=== PATIENT | female | born 1990 ===

== ENCOUNTER 2021-08-09 06:56 | Emergency (ER) | payer OTHER ==
[2021-08-09] MEDS ORDERED: ACETAMINOPHEN 325 MG TAB PO ONE (09:29)
[2021-08-09] MEDS ORDERED: SODIUM CHLORIDE 0.9% 1000 ML 1,000 ML IV ONE (09:29)
[2021-08-09] MEDS ORDERED: ONDANSETRON 4 MG/2 ML INJ IV ONE (09:29)
--- NOTE | 2021-08-09 09:30 | Emergency Department Report ---
ED General Adult HPI - General Chief complaint: Upper Respiratory Infection Stated complaint: SICK Time Seen by Provider: 08/09/21 09:06 Source: patient Mode of arrival: Ambulatory Limitations: No Limitations - History of Present Illness Initial comments: 31-year-old female presents to the ER today with flulike symptoms. Patient states that symptoms started 5 days ago. She states that she has been having productive cough intermittently, and she has noticed that she has been having some diffuse anterior chest pressure and tightness and she states that it is more noticeable when she takes a deep breath. She states that she has had diarrhea intermittently, nausea and has had decreased appetite. She reports postnasal drainage but no nasal congestion or rhinorrhea. She states that she has diffuse back aches. She denies any associate abdominal pain, UTI symptoms or any abnormal vaginal symptoms. Last menstrual cycle was July 23. 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 She has not taken a COVID-19 test since symptoms started. She also has not taken a Covid vaccine. She denies any significant past medical history. She states she does not smoke. She denies any alcohol abuse. MD Complaint: not feeling well -: days(s) (5) - Related Data Previous Rx's Medication Instructions Recorded Last Taken Type Albuterol Mdi (or & Nicu Only) 2 puff IH QID PRN #8.5 gram 08/09/21 Unknown Rx [ProAir HFA Inhaler] Ondansetron [Zofran Odt] 4 mg PO Q8HR PRN #15 tab.rapdis 08/09/21 Unknown Rx cephALEXin [Keflex] 500 mg PO Q8HR #21 capsule 08/09/21 Unknown Rx Allergies Allergy/AdvReac Type Severity Reaction Status Date / Time No Known Allergies Allergy Verified 08/09/21 07:53 ED Review of Systems ROS: Stated complaint: SICK Other details as noted in HPI Constitutional: denies: chills, fever Eyes: denies: eye pain, eye discharge, vision change ENT: denies: ear pain, throat pain Respiratory: cough. denies: shortness of breath, SOB with exertion, SOB at rest, wheezing Cardiovascular: chest pain (chest pressure/tightness with deep breathes). denies: palpitations, dyspnea on exertion, edema, syncope, paroxysmal nocturnal dyspnea Gastrointestinal: nausea, diarrhea. denies: abdominal pain, vomiting, constipation, hematemesis, melena, hematochezia Genitourinary: denies: urgency, dysuria, frequency, hematuria, discharge, abnormal menses, dyspareunia Skin: denies: rash, lesions, change in color, change in hair/nails Neurological: denies: headache, weakness, numbness, paresthesias, confusion, abnormal gait, vertigo Psychiatric: denies: anxiety, depression, auditory hallucinations, visual hallucinations, homicidal thoughts, suicidal thoughts Hematological/Lymphatic: denies: easy bleeding, easy bruising, swollen glands ED Past Medical Hx - Past Medical History Previous Medical History?: No - Surgical History Past Surgical History?: No - Medications Home Medications: Home Medications Medication Instructions Recorded Confirmed Last Taken Type Albuterol Mdi (or & Nicu Only) 2 puff IH QID PRN #8.5 gram 08/09/21 Unknown Rx [ProAir HFA Inhaler] Ondansetron [Zofran Odt] 4 mg PO Q8HR PRN #15 tab.rapdis 08/09/21 Unknown Rx cephALEXin [Keflex] 500 mg PO Q8HR #21 capsule 08/09/21 Unknown Rx ED Physical Exam - General Limitations: No Limitations General appearance: alert, in no apparent distress - Head Head exam: Present: atraumatic, normocephalic, normal inspection - Eye Eye exam: Present: normal appearance, PERRL, EOMI Pupils: Present: normal accommodation - ENT ENT exam: Present: normal orophraynx, mucous membranes moist - Neck Neck exam: Present: normal inspection, full ROM. Absent: meningismus - Respiratory Respiratory exam: Present: normal lung sounds bilaterally. Absent: respiratory distress, wheezes, rales, rhonchi - Cardiovascular Cardiovascular Exam: Present: regular rate, normal rhythm, normal heart sounds - GI/Abdominal GI/Abdominal exam: Present: soft. Absent: distended, tenderness, guarding - Back Exam Back exam: Present: normal inspection, full ROM - Neurological Exam Neurological exam: Present: alert, oriented X3, CN II-XII intact, normal gait - Psychiatric Psychiatric exam: Present: normal affect, normal mood - Skin Skin exam: Present: intact ED Course Vital Signs 08/09/21 08/09/2122 07:54 09:55 13:13 Temperature 98.4 F 97.8 F Pulse Rate 83 87 78 Respiratory 16 18 14 Rate Blood Pressure 137/77 114/76 108/68 [Left] O2 Sat by Pulse 99 99 Oximetry ED Medical Decision Making - Lab Data Result diagrams: 08/09/21 10:54 08/09/21 10:54 - Radiology Data Radiology results: report reviewed Patient: KAROLINE JACOBS MR#: [id number] 63 : 1990 Acct:[id number] Age/Sex: 31 / F ADM Date: 08/09/21 Loc: ED Attending Dr: Ordering Physician: ROBI DUNAWAY Date of Service: 08/09/21 Procedure(s): XR chest routine 2V Accession Number(s): [id number] cc: ROBI DUNAWAY Fluoro Time In Minutes: CHEST 2 VIEWS INDICATION / CLINICAL INFORMATION: pleuritic cp/cough. COMPARISON: None available. FINDINGS: SUPPORT DEVICES: None. HEART / MEDIASTINUM: No significant abnormality. LUNGS / PLEURA: No significant pulmonary or pleural abnormality. No pneumothorax. ADDITIONAL FINDINGS: No significant additional findings. IMPRESSION: 1. No acute findings. Signer Name: Curt Mcnally MD Signed: 08/09/2021 12:40 PM Workstation Name: [id number] Transcribed By: TUSHAR Dictated By: Curt Mcnally MD Electronically Authenticated By: Curt Mcnally MD Signed Date/Time: 08/09/21 1240 - Medical Decision Making 31-year-old female presents to the ER today with flulike symptoms. Patient states that symptoms started 5 days ago. She states that she has been having productive cough intermittently, and she has noticed that she has been having s ome diffuse anterior chest pressure and tightness and she states that it is more noticeable when she takes a deep breath. She states that she has had diarrhea intermittently, nausea and has had decreased appetite. She reports postnasal drainage but no nasal congestion or rhinorrhea. She states that she has diffuse back aches. She denies any associate abdominal pain, UTI symptoms or any abnormal vaginal symptoms. Last menstrual cycle was July 23. 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 She has not taken a COVID-19 test since symptoms started. She also has not taken a Covid vaccine. She denies any significant past medical history. She states she does not smoke. She denies any alcohol abuse. Labs reviewed --CBC and CMP unremarkable. Urinalysis concerning for UTI. hCG i s negative. Chest x-ray shows nothing acute. All vital signs are stable. Patient currently resting comfortably. She is not in any acute pain or respiratory distress. She is not toxic appearing. She is not significantly dehydrated. She will be treated for UTI will also suspect viral illness i ncluding COVID-19. The history, exam, diagnostic testing and current condition do not demonstrate an infectious process such as meningitis, severe pneumonia, acute respiratory distress syndrome with hypoxia, PE (PERC neg), cardiac etiology as she has no cardiac risk factors, sepsis or other serious viral/bacterial infection requiring further testing, treatment, consultation or admission at this time. Discussed suspected diagnosis and treatment plan with patient. She expressed understanding of all instructions and agree with plan. Patient was stable at time of discharge. Critical care attestation.: If time is entered above; I have spent that time in minutes in the direct care of this critically ill patient, excluding procedure time. ED Disposition Clinical Impression: Viral illness, UTI (urinary tract infection) Disposition: 01 HOME / SELF CARE / HOMELESS Is pt being admited?: No Does the pt Need Aspirin: No Condition: Stable Instructions: Urinary Tract Infection, Adult, [id number], Viral Illness, Adult Additional Instructions: I do recommend that you get a COVID-19 test once you leave here today. Take the Keflex as prescribed for the UTI. Take the Zofran as prescribed help with nausea. You can take Imodium [id number] to help with any diarrhea. You can take htuv-kga-[id number] cough cold medication to help with your symptoms. You can use the albuterol inhaler to help with any tightness in your chest, shortness of breath, coughing spell, or wheezing. You can get a pulse oximeter from [id number] to continue monitoring oxygen saturation, if you O2 is persistently less than 92 with worsening symptoms to return to the ER. I do recommend drinking lots of fluids. I do recommend quarantine at home until you get the results of your COVID-19 test. Take a multivitamin containing vitamin C, zinc and vitamin D. Return to the ER if your symptoms worsens in any way. Prescriptions: cephALEXin [Keflex] 500 mg PO Q8HR #21 capsule Albuterol Mdi (or & Nicu Only) [ProAir HFA Inhaler] 2 puff IH QID PRN #8.5 gram PRN Reason: Shortness Of Breath Ondansetron [Zofran Odt] 4 mg PO Q8HR PRN #15 tab.rapdis PRN Reason: nausea/vomiting Referrals: PRIMARY CAREMD [Primary Care Provider] - 3-5 Days FLOR SHEFFIELD MD [Staff Physician] - 3-5 Days Forms: Work/School Release Form(ED) Time of Disposition: 13:01
[2021-08-09 10:19] LABS: Bilirubin,Urine NEG (Negative); Blood,Urine SM (Negative); Color,Urine Yellow (Yellow); Mucus,Urine FEW /HPF; Urobilinogen,Urine < 2.0 mg/dL (<2.0)
[2021-08-09 12:09] LABS: Basophils % (Auto) 0.4 % (0.0-1.8); Eosinophils % (Auto) 0.1 % (0.0-4.3); Lymphocytes % (Auto) 32.7 % (13.4-35.0); Mean Corpuscular HGB Conc 31 % (30-34); Mean Corpuscular Volume 82 fl (79-97); Monocytes # (Auto) 0.4 K/mm3 (0.0-0.8); Monocytes % (Auto) 11.8 % (0.0-7.3); Platelet Count 155 K/mm3 (140-440); Red Blood Count 5.13 M/mm3 (3.65-5.03); Red Cell Distribution Width 13.4 % (13.2-15.2)
[2021-08-09 12:19] LABS: Hematocrit 42.3 % (30.3-42.9)
[2021-08-09 12:20] LABS: Alanine Aminotransferase 15 units/L (7-56); Albumin 3.7 g/dL (3.9-5); BUN/Creatinine Ratio 10; Blood Urea Nitrogen 7 mg/dL (7-17); Calcium 8.2 mg/dL (8.4-10.2); Hemolysis Index 6
--- NOTE | 2021-08-09 12:44 | XRay Report ---
CHEST 2 VIEWS INDICATION / CLINICAL INFORMATION: pleuritic cp/cough. COMPARISON: None available. FINDINGS: SUPPORT DEVICES: None. HEART / MEDIASTINUM: No significant abnormality. LUNGS / PLEURA: No significant pulmonary or pleural abnormality. No pneumothorax. ADDITIONAL FINDINGS: No significant additional findings. IMPRESSION: 1. No acute findings. Signer Name: Curt Mcnally MD Signed: 08/09/2021 12:40 PM Workstation Name: [id number]
[2021-08-09 13:18] VITALS: BP 108/68
--- NOTE | 2021-08-09 18:23 | Electrocardiograph Report ---
[facility] Test Date: 2021-08-09 Test Time: 09:44:05 Pat Name: KAROLINE JACOBS Department: Room: Gender: F Public Service Officer: LEAH : 1990 Requested By: GIANLUCA SOLIS Order Number: [id number] Reading MD: Carlos Carrasco Measurements Intervals [place] Rate: 84 P: 55 VA: 136 QRS: 50 QRSD: 72 T: 18 QT: 367 QTc: 435 Interpretive Statements Sinus rhythm No previous ECG available for comparison Electronically Signed On 08-09-2021 18:23:09 EST by Carlos Carrasco
== END 2021-08-09 13:13 | disposition home or self-care (01) ==
LOC: ED 06:56
DX: B34.9 Viral infection, unspecified (principal); N39.0 Urinary tract infection, site not specified
CPT/HCPCS: 36415; 71046; 80053; 81001; 84703; 85025; 87086; 93005; 96361; 96374; 99284; J2405; J7030; Q0162

== ENCOUNTER 2022-03-17 13:23 | Emergency (ER) | payer OTHER ==
[2022-03-17 14:00] VITALS: BP 133/74
== END 2022-03-18 14:03 | disposition left against medical advice (07) ==
LOC: ED 13:23
DX: R10.9 Unspecified abdominal pain (principal); M54.9 Dorsalgia, unspecified; Z53.21 Procedure and treatment not carried out due to patient leaving prior to being seen by health care provider